=== PATIENT | female | born 1970 | race Caucasian/White ===

== ENCOUNTER 2017-11-17 08:30 | Outpatient (CLI) | payer BC ==
[2017-11-17] MEDS ORDERED: Gadobenate Dimeglumine 529 MG/1 ML (20ML VIAL) ONE (09:00)
--- NOTE | 2017-11-17 12:29 | MRI ---
BRAIN MRI WITH AND WITHOUT CONTRAST: 11/17/2017 HISTORY: Dizziness. COMPARISON: None. TECHNIQUE: Multiplanar, multisequence MR imaging of the brain is obtained with and without contrast. FINDINGS: The diffusion-weighted imaging demonstrates no evidence for acute infarction. The axial gradient echo imaging demonstrates no evidence for intracranial hemorrhage. No midline shift, mass effect, or ventricular enlargement. The imaged paranasal sinuses/mastoid air cells demonstrate normal signal intensity. Arterial flow vo ids at the axial level of the skull base appear grossly unremarkable on the T2 weighted imaging. There are a few nonspecific scattered small foci of increased FLAIR signal within the white matter, i ncluding the periventricular white matter, near the atrium of the right lateral ventricle, the perive ntricular white matter, near the atrium of the left lateral ventricle, and the periventricular white matter, near the frontal horn of the left lateral ventricle. The corpus callosum appears normal. No signal abnormality noted within the brainstem or cerebellum. Post contrast imaging demonstrates no abnormal enhancement within the brain parenchyma. IMPRESSION: There are a few foci of increased FLAIR signal within the periventricular white matter, significance uncertain. The study is otherwise unremarkable. POS: GIULIA
== END 2017-11-17 08:31 | disposition home or self-care (01) ==
LOC: SCSMRI 08:30
PROVIDERS: ATTEND Psychiatry & Neurology Neurology
DX: R42 Dizziness and giddiness (principal)
CPT/HCPCS: 70553; A9579

== ENCOUNTER 2018-07-15 13:38 | Outpatient (CLI) | payer BC ==
--- NOTE | 2018-07-29 15:55 | MMO ---
Bilateral MAMMO Bilat Screen [facility]. CLINICAL HISTORY: Patient is 47 years old and is seen for screening. The patient has no family history of breast cancer. The patient has no personal history of cancer. VIEWS: The views performed were: bilateral craniocaudal with tomosynthesis and bilateral mediolateral oblique with tomosynthesis. FILMS COMPARED: The present examination has been compared to prior imaging studies performed at [facility] on 12/15/2008, 12/12/2010, 03/25/2012, 03/26/2013, 06/23/2014 and 06/27/2015, and at [facility] on 09/04/2004 and 06/12/2008. MAMMOGRAM FINDINGS: The breasts are heterogeneously dense, which could obscure a lesion on mammography. There are benign appearing calcifications seen in both breasts. There are no suspicious masses, suspicious calcifications, or new areas of architectural distortion. IMPRESSION: THERE IS NO MAMMOGRAPHIC EVIDENCE OF MALIGNANCY. A ROUTINE FOLLOW-UP MAMMOGRAM IN 1 YEAR IS RECOMMENDED. THE RESULTS OF THIS EXAM WERE SENT TO THE PATIENT. ACR BI-RADS Category 2 - Benign finding MAMMOGRAPHY NOTE: 1. A negative mammogram report should not delay a biopsy if a dominant of clinically suspicious mass is present. 2. Approximately 10% to 15% of breast cancers are not detected by mammography. 3. Adenosis and dense breasts may obscure an underlying neoplasm.
== END 2018-07-15 13:39 | disposition home or self-care (01) ==
LOC: BICMAMMO 13:38
PROVIDERS: ATTEND Obstetrics & Gynecology
DX: Z12.31 Encounter for screening mammogram for malignant neoplasm of breast (principal)
CPT/HCPCS: 77063; 77067

== ENCOUNTER 2018-12-03 10:31 | Outpatient (CLI) | payer BC ==
--- NOTE | 2018-12-03 12:22 | RAD ---
PA AND LATERAL CHEST: History: Melanoma on the back. FINDINGS: The heart size is normal. The lungs are expanded and clear. There are mild degenerative changes in th e spine. IMPRESSION: No radiographic evidence of acute cardiopulmonary process. POS: TPC
== END 2018-12-03 10:32 | disposition home or self-care (01) ==
LOC: BICRAD 10:31
DX: C43.59 Malignant melanoma of other part of trunk (principal)
CPT/HCPCS: 71046

== ENCOUNTER 2019-08-10 13:27 | Outpatient (CLI) | payer BC ==
--- NOTE | 2019-08-10 14:01 | MMO ---
Bilateral MAMMO Bilat Diag [facility]. CLINICAL HISTORY: Patient is 48 years old and is seen for diagnostic exam and palpable abnormality in the left breast. The patient has no family history of breast cancer. The patient has no personal history of cancer. VIEWS: The views performed were: bilateral craniocaudal with tomosynthesis; bilateral mediolateral oblique with tomosynthesis; and bilateral mediolateral with tomosynthesis. FILMS COMPARED: The present examination has been compared to prior imaging studies performed at 07/15/2018 and 08/10/2019. This study has been interpreted with the assistance of computer-aided detection. MAMMOGRAM FINDINGS: The breasts are heterogeneously dense, which could obscure a lesion on mammography. There is no radiographic abnormality in the region of the palpable abnormality in the middle region of the left breast at 2 o'clock. Multiple cysts seen underlying region of palpable abnormality on sonogram. Largest measured 1.2 cm. There are no suspicious masses, suspicious calcifications, or new areas of architectural distortion. IMPRESSION: THERE IS NO MAMMOGRAPHIC EVIDENCE OF MALIGNANCY. MULTIPLE CYSTS SEEN UNDERLYING REGION OF PALPABLE ABNORMALITY ON SONOGRAM. LARGEST MEASURED 1.2 CM. THE FINDINGS AND RECOMMENDATIONS WERE DISCUSSED WITH THE PATIENT PRIOR TO HER LEAVING THE CENTER. A ROUTINE FOLLOW-UP MAMMOGRAM IN 1 YEAR IS RECOMMENDED. THE RESULTS OF THIS EXAM WERE SENT TO THE PATIENT. ACR BI-RADS Category 2 - Benign finding MAMMOGRAPHY NOTE: 1. A negative mammogram report should not delay a biopsy if a dominant of clinically suspicious mass is present. 2. Approximately 10% to 15% of breast cancers are not detected by mammography. 3. Adenosis and dense breasts may obscure an underlying neoplasm. Reported by: JEYSON CARLOS MD Electonically Signed: [id number]
--- NOTE | 2019-08-10 14:15 | ULT ---
LEFT BREAST DIAGNOSTIC ULTRASOUND: Date: 08/10/2019 INDICATION: Palpable abnormality in the left breast. COMPARISON: Diagnostic evaluation dated 08/10/2019. FINDINGS: Corresponding to the palpable region of interest are multiple small cysts. One of the largest measure s 1.2 cm. IMPRESSION: BI-RADS Category 2 - Benign. Multiple small cysts correspond to the palpable region of interest in le ft breast at 2 o'clock position. The patient was counseled on the findings prior to leaving the [facility].
== END 2019-08-10 13:28 | disposition home or self-care (01) ==
LOC: BICMAMMO 13:27
PROVIDERS: ATTEND Obstetrics & Gynecology
DX: N63.20 Unspecified lump in the left breast, unspecified quadrant (principal); N60.02 Solitary cyst of left breast
CPT/HCPCS: 77066; G0279

== ENCOUNTER 2020-07-04 07:52 | Outpatient (CLI) | payer BC | END 2020-07-04 07:53 | disposition home or self-care (01) | LOC: TBSIIMAG 07:52 | PROVIDERS: ATTEND Orthopaedic Surgery | DX: M17.11 Unilateral primary osteoarthritis, right knee (principal); S83.241A Other tear of medial meniscus, current injury, right knee, initial encounter; M94.261 Chondromalacia, right knee ==

== ENCOUNTER 2020-08-21 11:29 | Outpatient (CLI) | payer BC | END 2020-08-21 11:30 | disposition home or self-care (01) | LOC: BICMAMMO 11:29 | PROVIDERS: ATTEND Obstetrics & Gynecology | DX: Z12.31 Encounter for screening mammogram for malignant neoplasm of breast (principal); Z85.820 Personal history of malignant melanoma of skin | CPT/HCPCS: 77063; 77067 ==

== ENCOUNTER 2021-08-27 15:10 | Outpatient (CLI) | payer BC | END 2021-08-27 15:11 | disposition home or self-care (01) | LOC: BICMAMMO 15:10 | PROVIDERS: ATTEND Physician Assistant | DX: Z12.31 Encounter for screening mammogram for malignant neoplasm of breast (principal); Z85.820 Personal history of malignant melanoma of skin | CPT/HCPCS: 77063; 77067 ==

== ENCOUNTER 2022-08-30 14:25 | Outpatient (CLI) | payer BC | END 2022-08-30 14:26 | disposition home or self-care (01) | LOC: BICMAMMO 14:25 | PROVIDERS: ATTEND Physician Assistant | DX: Z12.31 Encounter for screening mammogram for malignant neoplasm of breast (principal); Z85.820 Personal history of malignant melanoma of skin | CPT/HCPCS: 77063; 77067 ==

== ENCOUNTER 2024-12-24 08:06 | Outpatient (CLI) | payer BC | END 2024-12-24 08:07 | disposition home or self-care (01) | LOC: BICRAD 08:06 | PROVIDERS: ATTEND Family Medicine | DX: G24.3 Spasmodic torticollis (principal); M50.322 Other cervical disc degeneration at C5-C6 level; M43.8X2 Other specified deforming dorsopathies, cervical region | CPT/HCPCS: 72050 ==